=== PATIENT | female | born 1940 | race Caucasian/White ===

== ENCOUNTER → 2016-08-30 | Outpatient (CLI) | payer OTHER ==
[2015-03-14 13:37] VITALS: BP 158/69
--- NOTE | 2016-08-30 15:28 | MRI ---
HISTORY: Altered mental status. Study: MR brain without contrast. Comparison: Head CT dated September 13, 2014. Technique: Multiplanar multi-sequence MRI of the brain was obtained without contrast utilizing a [facility] [place] departmental protocol. Findings: There is an empty sella turcica. The evaluation of the brain parenchyma demonstrates no ab normal signal characteristics to suggest intraparenchymal mass or hemorrhage. There are scattered an d confluent areas of increased T2/FLAIR signal within the periventricular, deep and subcortical whit e matter regions bilaterally which would be most compatible with chronic ischemic microangiopathy in a patient of this age. No extra-axial fluid collections are observed. The ventricular system appea rs symmetric and nondilated. The CP angle is normal in its appearance without brainstem mass or ev idence for acoustic neuroma. The flow voids on both T1 and T2 weighted imaging appear unremarkable. Evaluation of the diffusion weighted imaging does not demonstrate abnormal signal characteristics to suggest acute ischemic change. The extracranial structures are unremarkable. There are degenerat laurel changes of the atlantoaxial articulation. IMPRESSION: 1. There is no acute intracranial abnormality. 2. Nonspecific white matter changes as above. Reported By:
== END ==
LOC: RAD 14:06
PROVIDERS: ATTEND Internal Medicine
DX: R41.82 Altered mental status, unspecified (principal)
CPT/HCPCS: 70551

== ENCOUNTER 2017-11-03 12:42 | Observation (INO) ==
[2017-11-03] MEDS ORDERED: ZOFRAN INJ 4 MG VIAL IVP PRN (15:59)
[2017-11-03 16:22] LABS: BASOPHILS # (AUTO) 0.1 X10^3/uL (0.0-0.1); EOSINOPHILS # (AUTO) 0.2 x10^3/uL (0.0-0.2); EOSINOPHILS % (AUTO) 2.2 % (0.9-2.9); HEMATOCRIT 36.8 % (36.0-47.0); HEMOGLOBIN 12.5 g/dL (12.0-16.0); LYMPHOCYTES # (AUTO) 1.1 X10^3/uL (1.3-2.9); LYMPHOCYTES % (AUTO) 15.6 % (21.0-51.0); MEAN CORPUSCULAR HEMOGLOBIN 28.6 pg (27.0-34.0); MEAN CORPUSCULAR HGB CONC 33.9 g/dL (33.0-35.0); MEAN CORPUSCULAR VOLUME 84.2 fL (80.0-100.0); MEAN PLATELET VOLUME 9.9 fL (7.4-11.0); MONOCYTES # (AUTO) 0.4 x10^3/uL (0.3-0.8); MONOCYTES % (AUTO) 5.5 % (0.0-13.0); NEUTROPHILS # (AUTO) 5.3 x10^3/uL (2.2-4.8); NEUTROPHILS % (AUTO) 75.7 % (42.0-75.0); PLATELET COUNT 146 X10^3/uL (150.0-450.0); RED BLOOD COUNT 4.37 X10^6/uL (3.5-5.4); RED CELL DISTRIBUTION WIDTH 14.6 % (11.6-16.5)
[2017-11-03 16:44] LABS: ALANINE AMINOTRANSFERASE 26 Units/L (12-78); ALBUMIN 3.3 g/dL (3.4-5.0); ALKALINE PHOSPHATASE 66 Units/L (46-116); ASPARTATE AMINO TRANSFERASE 26 Units/L (15-37); BLOOD UREA NITROGEN 25 mg/dL (7-18); CALCIUM 8.9 mg/dL (8.5-10.1); CARBON DIOXIDE 31.6 mmol/L (21-32); CHLORIDE 103 mmol/L (98-107); CKMB % 1.2 % (<4); COR CA(FOR HYPOALB) 9.5 mg/dL (8.5-10.1); COR NA(FOR HYPERGLY) 141 mmol/L (136-145); CREATINE KINASE 260 Units/L (26-192); CREATINE KINASE MB 3.1 ng/mL (0-4.0); CREATININE 1.43 mg/dL (0.55-1.02); SODIUM 139 mmol/L (136-145); TOTAL PROTEIN 6.6 g/dL (6.4-8.2); TROPONIN I < 0.02 ng/mL (0-1.5); eGFR NON BLACK RACES 38 (>60)
[2017-11-03] MEDS: PEPCID 20 MG IV PREMIX* 20 MG/50 ML BAG IV SCH ×2 (17:03→21:11)
[2017-11-03] MEDS: PROTONIX INJ 40 MG VIAL IVP SCH ×2 (17:04→21:11)
[2017-11-03] MEDS: NS 1000 ML 1,000 ML IV SCH (17:04)
[2017-11-03 17:59] VITALS: BMI 42.2
[2017-11-03 18:52] LABS: AMYLASE 40 Units/L (25-115); LIPASE 55 Units/L (73-393)
[2017-11-03 20:14] LABS: CREATINE KINASE 250 Units/L (26-192); CREATINE KINASE MB 2.5 ng/mL (0-4.0); TROPONIN I < 0.02 ng/mL (0-1.5)
[2017-11-03] MEDS ORDERED: HumuLIN R SUBCUT PRN (20:44)
[2017-11-03 23:06] LABS: BILIRUBIN,URINE NEGATIVE (NEGATIVE); BLOOD/HEMOGLOBIN,URINE NEGATIVE (NEGATIVE); GLUCOSE, URINE NEGATIVE (NEGATIVE); KETONES,URINE NEGATIVE (NEGATIVE); LEUKOCYTE ESTERASE ,URINE NEGATIVE (NEGATIVE); NITRITES,URINE NEGATIVE (NEGATIVE); PROTEIN,URINE NEGATIVE (NEGATIVE); UROBILINOGEN,URINE NORMAL (NORMAL)
[2017-11-03 23:08] LABS: APPEARANCE,URINE CLEAR (CLEAR); COLOR,URINE PALE YELLOW (YELLOW)
[2017-11-04] MEDS ORDERED: TYLENOL 325 MG TAB PO PRN
[2017-11-04 01:00] LABS: CKMB % 0.7 % (<4); CREATINE KINASE 229 Units/L (26-192); CREATINE KINASE MB 1.7 ng/mL (0-4.0); TROPONIN I < 0.02 ng/mL (0-1.5)
[2017-11-04 05:25] LABS: BASOPHILS % (AUTO) 0.6 % (0.2-1.0); EOSINOPHILS # (AUTO) 0.1 x10^3/uL (0.0-0.2); EOSINOPHILS % (AUTO) 2.4 % (0.9-2.9); HEMATOCRIT 35.4 % (36.0-47.0); LYMPHOCYTES # (AUTO) 1.6 X10^3/uL (1.3-2.9); LYMPHOCYTES % (AUTO) 29.1 % (21.0-51.0); MEAN CORPUSCULAR HEMOGLOBIN 28.3 pg (27.0-34.0); MEAN CORPUSCULAR HGB CONC 33.8 g/dL (33.0-35.0); MEAN CORPUSCULAR VOLUME 83.7 fL (80.0-100.0); MEAN PLATELET VOLUME 9.7 fL (7.4-11.0); MONOCYTES # (AUTO) 0.4 x10^3/uL (0.3-0.8); MONOCYTES % (AUTO) 7.3 % (0.0-13.0); NEUTROPHILS # (AUTO) 3.4 x10^3/uL (2.2-4.8); NEUTROPHILS % (AUTO) 60.6 % (42.0-75.0); PLATELET COUNT 142 X10^3/uL (150.0-450.0); RED BLOOD COUNT 4.23 X10^6/uL (3.5-5.4); RED CELL DISTRIBUTION WIDTH 14.7 % (11.6-16.5); WHITE BLOOD COUNT 5.5 X10^3/uL (3.6-10.0)
[2017-11-04 05:39] LABS: CALCIUM 8.5 mg/dL (8.5-10.1); CARBON DIOXIDE 32.6 mmol/L (21-32); COR CA(FOR HYPOALB) 9.3 mg/dL (8.5-10.1); CREATININE 1.37 mg/dL (0.55-1.02); TOTAL PROTEIN 6.1 g/dL (6.4-8.2)
[2017-11-04] MEDS ORDERED: K-RIDER 10 MEQ/NS 100 ML 10 MEQ/100 ML BAG IV PRN (06:02)
[2017-11-04] MEDS ORDERED: POTASSIUM CHL 40 MEQ/NS 0.45% 500 ML IV PRN (06:02)
[2017-11-04] MEDS ORDERED: POTASSIUM CHLORIDE LIQ 20 MEQ UDC PO PRN (06:02)
[2017-11-04] MEDS ORDERED: MAGNESIUM SULFATE 1 GRAM/100 mL PREMIX 1 GM/100 ML BAG IV PRN (06:02)
[2017-11-04] MEDS ORDERED: POTASSIUM CHL 60 MEQ/NS 0.45% 500 ML IV PRN (06:02)
[2017-11-04] MEDS ORDERED: K-LYTE EFFERVESCENT PO PRN (06:02)
[2017-11-04] MEDS: NS 1000 ML 1,000 ML IV SCH ×2 (07:52→18:57)
[2017-11-04] MEDS: PROTONIX INJ 40 MG VIAL IVP SCH ×2 (08:32→21:41)
[2017-11-04] MEDS: PEPCID 20 MG IV PREMIX* 20 MG/50 ML BAG IV SCH ×2 (08:32→21:41)
[2017-11-04] MEDS ORDERED: ANTIVERT TAB 25 MG PO PRN (09:43)
[2017-11-04] MEDS ORDERED: PATIENT'S HOME MEDICATION (Fluticasone-Vilanterol [Breo Ellipta] 1 INH) IN SCH (09:45)
[2017-11-04] MEDS ORDERED: PROTONIX TAB 40 MG PO SCH (10:00)
[2017-11-04] MEDS ORDERED: POTASSIUM CHLORIDE PO SCH (10:00)
[2017-11-04] MEDS ORDERED: PATIENT'S HOME MEDICATION (Multiple Vitamins W/ Minerals [Centrum Silver] 1 TAB) PO SCH (10:00)
[2017-11-04] MEDS ORDERED: ALLEGRA ONE (11:55)
[2017-11-04] MEDS: CARDURA PO SCH (11:58)
[2017-11-04] MEDS: CELEBREX PO SCH (11:59)
[2017-11-04] MEDS: SYNTHROID 50 mcg TAB PO SCH (11:59)
[2017-11-04] MEDS: COLACE CAP 100 MG PO SCH ×3 (11:59→21:56)
[2017-11-04] MEDS: COREG TAB 25 MG PO SCH ×2 (12:01→21:40)
[2017-11-04] MEDS: TAB-A-VITE PO SCH (12:02)
[2017-11-04] MEDS: ALLEGRA PO SCH (12:02)
[2017-11-04] MEDS: ULTRAM PO SCH ×2 (12:05→21:41)
[2017-11-04] MEDS ORDERED: PROVENTIL NEB TX 0.083% 2.5MG/ 3ML NEB SCH (13:00)
[2017-11-04 13:52] LABS: STOOL FOR WBC POSITIVE (NEGATIVE)
[2017-11-04] MEDS: MICRO K EXTEN CAP 10 MEQ PO SCH (13:59)
--- NOTE | 2017-11-04 14:28 | CT ---
HISTORY: Upper abdominal pain, nausea and vomiting Study: CT abdomen and pelvis without contrast Comparison: 02/23/2015 Technique: Multiple axial images of the abdomen and pelvis were obtained from the lung bases to the pubic symphy sis without the administration of IV contrast. Findings: The visualized portions of the lung bases are unremarkable. Imaging of the abdomen and pelvis demonstrates a small hiatal hernia. There is also a midline ventral abdominal wall hernia containing fat within the upper abdomen. The liver is unremarkable. The patien t is status post cholecystectomy. There is diffuse fatty atrophy of the pancreas. Again visualized is a peripherally calcified lesion within the spleen, unchanged when compared to prior exam. The bilate ral adrenal glands are unremarkable. There has been interval enlargement of a slightly hypodense lesi on within the superior pole of the left kidney. This lesion measures 2.5 cm in diameter and does not have Hounsfield units consistent with a simple cyst. Although this could represent a complicated cyst , further evaluation with MRI of the abdomen with and without contrast is recommended. Multi focal at rophy and scarring is noted within the left kidney. There is a small cortical calcification or nonobs tructive caliceal stone within the superior pole the left kidney. No significant mesenteric lymphaden opathy or stranding can be observed. No free fluid or free air is seen within the abdomen. No bowel wall thickening or bowel dilatation is present. There is scattered mild diverticulosis of the colon without evidence of acute diverticulitis. The appendix is normal in appearance and without inflammat ory change. The urinary bladder is mostly decompressed. The bony structures are grossly intact. IMPRESSION: 1. No acute intra-abdominal abnormality. 2. Indeterminate left renal lesion as described above for which correlation with MRI of the abdomen w ith and without contrast is recommended in a nonemergent setting. 3. Small hiatal hernia. 4. Midline ventral abdominal wall hernia containing fat and other incidental findings as above. Reported By:
[2017-11-04] MEDS: INSULIN ASPART U 1 UNIT SUB-Q SCH (16:47)
[2017-11-04] MEDS ORDERED: SNACK - Diabetic Appropriate PO SCH (20:00)
[2017-11-04] MEDS ORDERED: PULMICORT NEB TX 0.5 MG NEB SCH (21:00)
[2017-11-04] MEDS ORDERED: PATIENT'S HOME MEDICATION (Simvastatin 1 TAB) PO SCH (21:00)
[2017-11-04] MEDS ORDERED: ZOCOR TAB 40 MG PO SCH (21:00)
[2017-11-04] MEDS ORDERED: PATIENT'S HOME MEDICATION (Levocetirizine Dihydrochloride [Xyzal] 1 TAB) PO SCH (21:00)
[2017-11-04] MEDS ORDERED: ZyrTEC TAB 10 MG PO SCH (21:00)
[2017-11-05 05:05] LABS: BASOPHILS % (AUTO) 0.9 % (0.2-1.0); EOSINOPHILS # (AUTO) 0.2 x10^3/uL (0.0-0.2); EOSINOPHILS % (AUTO) 3.6 % (0.9-2.9); HEMATOCRIT 35.5 % (36.0-47.0); HEMOGLOBIN 11.9 g/dL (12.0-16.0); LYMPHOCYTES # (AUTO) 1.4 X10^3/uL (1.3-2.9); LYMPHOCYTES % (AUTO) 26.2 % (21.0-51.0); MEAN CORPUSCULAR HEMOGLOBIN 28.2 pg (27.0-34.0); MEAN CORPUSCULAR HGB CONC 33.4 g/dL (33.0-35.0); MEAN CORPUSCULAR VOLUME 84.5 fL (80.0-100.0); MEAN PLATELET VOLUME 9.6 fL (7.4-11.0); MONOCYTES # (AUTO) 0.4 x10^3/uL (0.3-0.8); MONOCYTES % (AUTO) 7.7 % (0.0-13.0); NEUTROPHILS # (AUTO) 3.3 x10^3/uL (2.2-4.8); NEUTROPHILS % (AUTO) 61.6 % (42.0-75.0); PLATELET COUNT 148 X10^3/uL (150.0-450.0); RED CELL DISTRIBUTION WIDTH 14.8 % (11.6-16.5); WHITE BLOOD COUNT 5.4 X10^3/uL (3.6-10.0)
[2017-11-05 05:39] LABS: CALCIUM 8.6 mg/dL (8.5-10.1); CARBON DIOXIDE 30.8 mmol/L (21-32); COR CA(FOR HYPOALB) 9.4 mg/dL (8.5-10.1); CREATININE 1.16 mg/dL (0.55-1.02); TOTAL PROTEIN 6.1 g/dL (6.4-8.2)
[2017-11-05] MEDS ORDERED: LEVEMIR SC SCH (07:00)
[2017-11-05] MEDS: NS 1000 ML 1,000 ML IV SCH ×2 (07:32→09:15)
[2017-11-05] MEDS: SYNTHROID 50 mcg TAB PO SCH (07:41)
[2017-11-05] MEDS: INSULIN ASPART U 1 UNIT SUB-Q SCH (07:41)
[2017-11-05] MEDS ORDERED: ALLEGRA ONE (09:01)
[2017-11-05] MEDS: PEPCID 20 MG IV PREMIX* 20 MG/50 ML BAG IV SCH (09:12)
[2017-11-05] MEDS: PROTONIX INJ 40 MG VIAL IVP SCH (09:12)
[2017-11-05] MEDS: CARDURA PO SCH (09:13)
[2017-11-05] MEDS: CELEBREX PO SCH (09:13)
[2017-11-05] MEDS: ULTRAM PO SCH (09:13)
[2017-11-05] MEDS: TAB-A-VITE PO SCH (09:13)
[2017-11-05] MEDS: ALLEGRA PO SCH (09:13)
[2017-11-05] MEDS: MICRO K EXTEN CAP 10 MEQ PO SCH (09:13)
[2017-11-05] MEDS: COLACE CAP 100 MG PO SCH (09:14)
[2017-11-05] MEDS: COREG TAB 25 MG PO SCH (09:14)
[2017-11-05 09:26] VITALS: BP 187/77
--- NOTE | 2017-11-05 11:47 | DR.UPDATE ---
H&P Update History and Physical Update: WAS SEEN IN THE OFFICE TODAY. A H&P WAS COMPLETED PRIOR TO ADMISSION. PATIENT HAS BEEN SEEN AND EXAMINED WITH NO CHANGES NOTED TO H&P. Changes noted: NO Yes with the following:
[2017-11-05] MEDS ORDERED: HumaLOG SC SCH (17:00)
--- NOTE | 2017-12-04 01:35 | DR.CARTERD ---
- Discharge Summary for: Discharge Summary for Date of:: 11/05/17 - Admission Date Date of Admission: 11/03/17 - Admission Diagnoses Admission Diagnosis: 1. Abdominal pain 2. Nausea and vomiting 3. Dehydration - Discharge Date Discharge Date: 11/05/17 - Discharge Diagnoses Discharge Diagnosis: 1. Abdominal pain 2. Nausea and vomiting 3. Dehydration - Hospital Course Hospital Course: Day one, patient presented to the hospital as a direct admission after being seen in the office with reports of malaise, nausea and vomiting. Patient stated symptoms started three days prior and she was seen in the emergency room then and told she had a virus. Patient stated she had continued to feel worse. Reported symptoms included dizziness and head pressure. Patient noted with diffuse abdominal tenderness on palpation. On auscultation of abdominal quadrants patient noted with hypoactive bowel sounds throughout. Patient rated pain as a 7/10. Abnormal Labs: Plt Count 146, BUN 25, Creatinine 1.43, GFR af 46, GFR non 38, Glucose 200, Creatine Kinase 260, 250, Albumin 3.3, A/G Ratio 1.0, Lipase 55. EKG: Sinus Rhythm, rate=66. Patient admitted to the hospital for further evaluation and treatment. We obtained serial cardiac enzymes and EKGs. Day two, patient continued with abdominal pain and nausea and vomiting. Renal function slightly improved with IV hydration. A CT of abd/pelvis was obtained and was negative for acute abnormality. We continued IV fluids and IV antiemetics along with pain medication. Day three, patient reported she was feeling better. Patient denied nausea or vomiting. On palpation of abdomen, patient denied abdominal pain. Cardiac enzymes wnl, as well as EKG's. Vital signs stable. Labs wnl. We planned for discharge. Instructions for medications and follow up were discussed with patient and family, both voiced understanding. Patient discharged home in stable condition with family. - Discharge Medications Discharge Medications: Home Medication List celecoxib [Celebrex] 200 mg PO DAILY 11/03/17 [History] docusate sodium [Colace] 200 mg PO HS 11/03/17 [History] doxazosin [Cardura] 1 mg PO DAILY 11/03/17 [History] fexofenadine [Chapis Allergy] 180 mg PO DAILY 11/03/17 [History] fluticasone-vilanterol [Breo Ellipta] 1 inh INHALATION DAILY 11/03/17 [History] insulin aspart U-100 [Novolog U-100 Insulin aspart] 1 unit SUB-Q BIDWM 11/03/17 [History] insulin detemir U-100 [Levemir U-100 Insulin] 24 unit SUB-Q DAILYWB 11/03/17 [ History] levothyroxine [Synthroid] 50 mcg PO DAILYAC 11/03/17 [History] losartan-hydrochlorothiazide 1 tab PO DAILY 11/03/17 [History] meclizine 25 mg PO TID PRN MDD 2 11/03/17 [History] tramadol 50 mg PO BID 11/03/17 [History] ciprofloxacin HCl [Cipro] 500 mg PO BID #20 tab 11/05/17 [Rx] ondansetron [Zofran ODT] 4 mg PO TID PRN #30 tab 11/05/17 [Rx] Prescriptions: ciprofloxacin HCl [Cipro] Milan Ackerman ondansetron [Zofran ODT] Milan Ackerman - Discharge Disposition Discharge Disposition: Patient is to follow up in our office in one week.
--- NOTE | 2017-12-04 21:48 | PCM.PROG ---
Progress Note - Progress Note for Day of Date of Exam: 11/04/17 - Subjective Subjective: WAS ADMITTED FOR ABDOMINAL PAIN, NAUSEA, AND VOMITING. TODAY, SHE IS ALERT AND ORIENTED, LYING IN BED ON MORNING ROUNDS. SHE CONTINUES WITH COMPLAINTS OF ABDOMINAL PAIN, DIARRHEA, AND NAUSEA, BUT REPORTS SLIGHT IMPROVEMENT SINCE YESTERDAY. EXAM REVEALS MILD, DIFFUSE TENDERNESS OF PALPATION WITH INCREASED BOWEL SOUNDS NOTED IN ALL QUADRANTS. HER VITALS TODAY ARE 98.5-75 -20-96%-152/68. LABS WERE OBTAINED. ABNORMAL LAB VALUES INCLUDE THE FOLLOWING: HCT 35.4, PLT COUNT 142, POTASSIUM 3.2, CARBON DIOXIDE 32.6, BUN 21, CREATININE 1.37, GLUCOSE 151, TOTAL PROTEIN 6.1, ALBUMIN 3.0, LIPASE 49. A URINALYSIS OBTAINED ON ADMISSION IS UNREMARKABLE. AN ABDOMEN/PELVIS CT WAS OBTAINED AND REVEALED: No acute intra-abdominal abnormality. Indeterminate left renal lesion as described above for which correlation with MRI of the abdomen with and without contrast is recommended in a nonemergent setting. Small hiatal hernia. Midline ventral abdominal wall hernia containing fat and other incidental findings as above. TODAY, WE WILL OBTAIN STOOL STUDIES. OTHERWISE, WE WILL FOLLOW UP WITH AM LABS AND CONTINUE TO MONITOR PATIENT. - Past Medical Family Social History Past Med/Fam/Surg Hx: No changes since H&P Allergies: Allergies labetalol Allergy (Verified 11/03/17 18:04) Sulfa (Sulfonamide Antibiotics) [SULFA] Allergy (Verified 11/03/17 18:04) - Review of Systems ROS: No change since H&P - Vital Signs and I&O's Vital Signs: Temperature 97.9 F Pulse Rate [Right Brachial] 71 Respiratory Rate 22 Blood Pressure [Right Arm] 187/77 Blood Pressure [Left Calf] 128/53 Blood Pressure [Left Arm] 178/69 Blood Pressure 191/80 O2 Sat by Pulse Oximetry 94 - Physical Exam Oriented: Normal Eyes: Normal Ear: Normal Nose: Normal Throat: Normal Respiratory: Normal Cardiovascular: Normal : Normal Auscultation: Bowel Sounds: Increased Palpation: Normal Tenderness: Diffuse, Mild. negative: Rebound, Guarding, Rigidity Skin: Normal Musculoskeletal: Normal Psychiatric: Normal Mood Description: Calm Affect: Normal Speech Pattern: Clear, Appropriate - Laboratory and Diagnostics Result Diagrams: 11/05/17 04:35 11/05/17 04:35 Labs: 11/04/17 12:52 Stool Stool Culture - Final 11/04/17 12:52 Stool - Final Laboratory WBC 5.4 X10^3/uL (3.6-10.0) 11/05/17 04:35 RBC 4.20 X10^6/uL (3.5-5.4) 11/05/17 04:35 Hgb 11.9 g/dL (12.0-16.0) L 11/05/17 04:35 Hct 35.5 % (36.0-47.0) L 11/05/17 04:35 MCV 84.5 fL (80.0-100.0) 11/05/17 04:35 MCH 28.2 pg (27.0-34.0) 11/05/17 04:35 MCHC 33.4 g/dL (33.0-35.0) 11/05/17 04:35 RDW 14.8 % (11.6-16.5) 11/05/17 04:35 Plt Count 148 X10^3/uL (150.0-450.0) L 11/05/17 04:35 MPV 9.6 fL (7.4-11.0) 11/05/17 04:35 Neut % (Auto) 61.6 % (42.0-75.0) 11/05/17 04:35 Lymph % (Auto) 26.2 % (21.0-51.0) 11/05/17 04:35 Petroleum % (Auto) 7.7 % (0.0-13.0) 11/05/17 04:35 Eos % (Auto) 3.6 % (0.9-2.9) H 11/05/17 04:35 Baso % (Auto) 0.9 % (0.2-1.0) 11/05/17 04:35 Neut # (Auto) 3.3 x10^3/uL (2.2-4.8) 11/05/17 04:35 Lymph # (Auto) 1.4 X10^3/uL (1.3-2.9) 11/05/17 04:35 Petroleum # (Auto) 0.4 x10^3/uL (0.3-0.8) 11/05/17 04:35 Eos # (Auto) 0.2 x10^3/uL (0.0-0.2) 11/05/17 04:35 Baso # (Auto) 0.0 X10^3/uL (0.0-0.1) 11/05/17 04:35 Absolute Nucleated RBC 0.1 /100WBC 11/05/17 04:35 Sodium 144 mmol/L (136-145) 11/05/17 04:35 Corrected Sodium 146 mmol/L (136-145) H 11/05/17 04:35 Potassium 4.2 mmol/L (3.5-5.1) 11/05/17 04:35 Chloride 108 mmol/L (98-107) H 11/05/17 04:35 Carbon Dioxide 30.8 mmol/L (21-32) 11/05/17 04:35 BUN 15 mg/dL (7-18) 11/05/17 04:35 Creatinine 1.16 mg/dL (0.55-1.02) H 11/05/17 04:35 Est GFR (MDRD) Af Amer 58 (>60) L 11/05/17 04:35 Est GFR (MDRD) Non-Af 48 (>60) L 11/05/17 04:35 Glucose 178 mg/dL (65-99) H 11/05/17 04:35 POC Glucose (mg/dL) 124 mg/dL (65-99) H 11/05/17 04:34 Calcium 8.6 mg/dL (8.5-10.1) 11/05/17 04:35 Corrected Calcium 9.4 mg/dL (8.5-10.1) 11/05/17 04:35 Magnesium 1.7 mg/dL (1.7-2.9) 11/04/17 04:48 Total Bilirubin 0.40 mg/dL (0.2-1.0) 11/05/17 04:35 AST 22 Units/L (15-37) 11/05/17 04:35 ALT 24 Units/L (12-78) 11/05/17 04:35 Alkaline Phosphatase 55 Units/L (46-116) 11/05/17 04:35 Creatine Kinase 229 Units/L (26-192) H 11/04/17 00:10 CK-MB (CK-2) 1.7 ng/mL (0-4.0) 11/04/17 00:10 CK/CKMB % Calc 0.7 % (<4) 11/04/17 00:10 Troponin I < 0.02 ng/mL (0-1.5) 11/04/17 00:10 Total Protein 6.1 g/dL (6.4-8.2) L 11/05/17 04:35 Albumin 3.0 g/dL (3.4-5.0) L 11/05/17 04:35 Globulin 3.1 g/dL (2.5-4.5) 11/05/17 04:35 Albumin/Globulin Ratio 1.0 Ratio (1.1-2.1) L 11/05/17 04:35 Amylase 34 Units/L (25-115) 11/04/17 04:48 Lipase 49 Units/L (73-393) L 11/04/17 04:48 Specimen Type Random urine 11/03/17 22:35 Urine Color Pale yellow (YELLOW) 11/03/17 22:35 Urine Appearance Clear (CLEAR) 11/03/17 22:35 Urine pH 6.0 (5.0 - 8.0) 11/03/17 22:35 Ur Specific Ewen 1.010 (1.000-1.030) 11/03/17 22:35 Urine Protein Negative (NEGATIVE) 11/03/17 22:35 Urine Glucose (UA) Negative (NEGATIVE) 11/03/17 22:35 Urine Ketones Negative (NEGATIVE) 11/03/17 22:35 Urine Occult Blood Negative (NEGATIVE) 11/03/17 22:35 Urine Nitrite Negative (NEGATIVE) 11/03/17 22:35 Urine Bilirubin Negative (NEGATIVE) 11/03/17 22:35 Urine Urobilinogen Normal (NORMAL) 11/03/17 22:35 Ur Leukocyte Esterase Negative (NEGATIVE) 11/03/17 22:35 Stool Description 100g semi-formed 11/04/17 12:52 Stool Neutral Fats Normal (Normal) 11/04/17 12:52 Stool Split Fat Normal (Normal) 11/04/17 12:52 Stl Occult Blood (IFOB) Negative (NEGATIVE) 11/04/17 12:52 Stool for White Cells Positive (NEGATIVE) A 11/04/17 12:52 Stl C. diff Tox B Gene Negative (NEGATIVE) 11/04/17 12:52 Stl C. diff [id number] Negative (NEGATIVE) 11/04/17 12:52 - Plan (1) Abdominal pain Status: Acute Qualifiers: Abdominal location: generalized Qualified Code(s): R10.84 - Generalized abdominal pain Plan: OBTAIN STOOL STUDIES, CONTINUE TO MONITOR (2) Nausea and vomiting Status: Acute Qualifiers: Vomiting type: unspecified Vomiting Intractability: intractable Qualified Code(s): R11.2 - Nausea with vomiting, unspecified
== END 2017-11-05 11:15 | disposition home or self-care (01) ==
LOC: MED/SURG
PROVIDERS: ADMIT Internal Medicine; ATTEND Internal Medicine
DX: R94.31 Abnormal electrocardiogram [ECG] [EKG]; R10.84 Generalized abdominal pain; R07.89 Other chest pain; K43.9 Ventral hernia without obstruction or gangrene; K44.9 Diaphragmatic hernia without obstruction or gangrene; E11.65 Type 2 diabetes mellitus with hyperglycemia; R11.2 Nausea with vomiting, unspecified
CPT/HCPCS: 36415; 74176; 80053; 81003; 82150; 82270; 82550; 82553; 82705; 83630; 83690; 83735; 84132; 84484; 85025; 87045; 87427; 87449; 87493; 87899; 93005; A4216; A4222; C9113; S0028; G0378; J1815; J3480; J3490; J7030

== ENCOUNTER 2018-09-22 04:53 | Observation (INO) ==
[2018-09-22] MEDS ORDERED: ZOFRAN INJ 4 MG VIAL ONE (05:09)
[2018-09-22] MEDS ORDERED: NS 1000 ML 1,000 ML ONE (05:09)
[2018-09-22] MEDS ORDERED: ZOFRAN INJ 4 MG VIAL IVP ONE (05:23)
[2018-09-22 05:27] VITALS: BMI 40.2
[2018-09-22] MEDS: NS 1000 ML 1,000 ML IV SCH ×3 (05:28→23:20)
[2018-09-22 05:37] LABS: BASOPHILS # (AUTO) 0.1 X10^3/uL (0.0-0.1); BASOPHILS % (AUTO) 0.6 % (0.2-1.0); EOSINOPHILS # (AUTO) 0.1 x10^3/uL (0.0-0.2); EOSINOPHILS % (AUTO) 1.3 % (0.9-2.9); HEMATOCRIT 41.1 % (36.0-47.0); HEMOGLOBIN 13.7 g/dL (12.0-16.0); LYMPHOCYTES # (AUTO) 1.1 X10^3/uL (1.3-2.9); LYMPHOCYTES % (AUTO) 14.1 % (21.0-51.0); MEAN CORPUSCULAR HEMOGLOBIN 29.3 pg (27.0-34.0); MEAN CORPUSCULAR HGB CONC 33.4 g/dL (33.0-35.0); MEAN CORPUSCULAR VOLUME 87.7 fL (80.0-100.0); MEAN PLATELET VOLUME 9.8 fL (7.4-11.0); MONOCYTES # (AUTO) 0.6 x10^3/uL (0.3-0.8); MONOCYTES % (AUTO) 7.1 % (0.0-13.0); NEUTROPHILS # (AUTO) 6.1 x10^3/uL (2.2-4.8); NEUTROPHILS % (AUTO) 76.9 % (42.0-75.0); PLATELET COUNT 176 X10^3/uL (150.0-450.0); RED BLOOD COUNT 4.69 X10^6/uL (3.5-5.4); RED CELL DISTRIBUTION WIDTH 13.4 % (11.6-16.5)
--- NOTE | 2018-09-22 05:41 | DR.NAUSEAF ---
HPI Time Seen Time Seen by Provider: 09/22/18 05:29 Primary Care Physician Primary Care Physician: césar Zarate Chief Complaint Doctors Comments: A 77 y/o female presenting with nausea and vomiting. She has vomited x 3 since 0300 hrs. this morning. She denies fever, abdominal pain or diarrhea. She denies recent travel, consuming poorly prepared food items. Chief Complaint:: pt states" I woke up at 3 am vomiting I can't keep anything down I feel weak and my blood pressure is up" Source History Provided: Patient Mode of Arrival Mode of Arrival: Wheelchair Timing Onset of Chief Complaint: 09/22/18 Severity Number of episodes of vomiting over last 24 hours: 3 Context Onset: Spontaneous Recent: None : No Associated Signs and Symptoms Abdominal Pain Quality: denies Aching, Burning, Cramping, Sharp and Stabbing PMH PMH Past Medical History: Yes Past Medical History: COPD, Diabetes, Dyslipidemia, Hypertension, Hypothyroidism and Renal Disease Past Surgical History: Yes Surgical History: CABG/Valve Surgery, Cholecystectomy, Joint Replacement and Ortho Surgery Family History History of Family Medical Conditions: Yes Family Medical History: Diabetes Mellitus, Cancer, Coronary Artery Disease and Hypertension Social History Does any household member use tobacco: No Alcohol Use: None Do you use any recreational Drugs:: No Lives With: Family Lives Where: Home infectious screening In the last 2 months have you had wt loss of >10#?: NO Have you had fever, night sweats or hemotysis?: No Have you traveled outside the country in the last 6 months?: No Isolation: Standard ROS Review of Systems Constitutional: No Symptoms Reported Eyes: No Symptoms Reported ENTM: No Symptoms Reported Respiratoy: No Symptoms Reported Cardiovascular: No Symptoms Reported Gastrointestinal/Abdominal: Nausea and Vomiting; negative No Symptoms Reported, See HPI, Abdominal Pain, Constipation, Diarrhea and Food Intolerance Genitourinary: No Symptoms Reported Neurological: No Symptoms Reported Musculoskeletal: No Symptoms Reported Integumentary: No Symptoms Reported Hematologic/Lymphatic: No Symptoms Reported Endocrine: No Symptoms Reported Psychiatric: No Symptoms Reported PE Vital Signs Vitals: Temperature 98.2 F Pulse Rate 74 Respiratory Rate 20 Blood Pressure [Right Arm] 169/74 Blood Pressure [Left Calf] 128/53 Blood Pressure [Left Arm] 178/69 Blood Pressure 196/87 O2 Sat by Pulse Oximetry 96 General Limitations: No Limitations General Appearance: Alert and In No Apparent Distress Head Head Exam: Normal Inspection, Atraumatic and Normocephalic Eyes Eye exam: Normal Appearance and EOMI ENT ENT Exam: Normal Oropharynx and Mucous Membranes Moist Neck Neck Exam: Normal Inspection, Full ROM and Trachea Midline Chest Chest Inspection: Normal Inspection and Symmetric Chest Wall Rise Respiratory Respiratory Exam: Normal Lung Sounds Bilat Cardiovascular Cardiovascular Exam: Regular Rate, Normal Rhythm, +S1 and +S2 Abdominal Exam Abdominal Exam: Normal Inspection, Normal Bowel Sounds and Soft; negative Distention, Tenderness, Guarding, Rebound, Rigidity, Dimnished Bowel Sounds, Hyperactive Bowel Sounds, Hypoactive Bowel Sounds, Organomegaly, Trauma, Incision, Ascites, Mass, Bruit, Pulsatile Mass and Hernia Rectal Rectal Exam: Deferred External Exam: Female: Deferred Extremities Extremities Exam: Normal Inspection Back Back Exam: Normal Inspection Neurologic Neurological Exam: Alert and Oriented X3 Psychiatric Psychiatric Exam: Normal Affect and Normal Mood Skin Skin Exam: Dry and Normal Color COURSE Reevaluation 1st: Improved Education/Counseling Education/Counseling: Patient, Family, Education and Counseling Educated On: Treatment, Diagnosis, Prognosis and Needs for Follow Up ROR Labs Reviewed Result Diagrams: 09/22/18 05:20 09/22/18 05:20 Laboratory: WBC 8.0 X10^3/uL (3.6-10.0) 09/22/18 05:20 RBC 4.69 X10^6/uL (3.5-5.4) 09/22/18 05:20 Hgb 13.7 g/dL (12.0-16.0) 09/22/18 05:20 Hct 41.1 % (36.0-47.0) 09/22/18 05:20 MCV 87.7 fL (80.0-100.0) 09/22/18 05:20 MCH 29.3 pg (27.0-34.0) 09/22/18 05:20 MCHC 33.4 g/dL (33.0-35.0) 09/22/18 05:20 RDW 13.4 % (11.6-16.5) 09/22/18 05:20 Plt Count 176 X10^3/uL (150.0-450.0) 09/22/18 05:20 MPV 9.8 fL (7.4-11.0) 09/22/18 05:20 Neut % (Auto) 76.9 % (42.0-75.0) H 09/22/18 05:20 Lymph % (Auto) 14.1 % (21.0-51.0) L 09/22/18 05:20 [place] % (Auto) 7.1 % (0.0-13.0) 09/22/18 05:20 Eos % (Auto) 1.3 % (0.9-2.9) 09/22/18 05:20 Baso % (Auto) 0.6 % (0.2-1.0) 09/22/18 05:20 Neut # (Auto) 6.1 x10^3/uL (2.2-4.8) H 09/22/18 05:20 Lymph # (Auto) 1.1 X10^3/uL (1.3-2.9) L 09/22/18 05:20 [place] # (Auto) 0.6 x10^3/uL (0.3-0.8) 09/22/18 05:20 Eos # (Auto) 0.1 x10^3/uL (0.0-0.2) 09/22/18 05:20 Baso # (Auto) 0.1 X10^3/uL (0.0-0.1) 09/22/18 05:20 Absolute Nucleated RBC 0.0 /100WBC 09/22/18 05:20 Sodium 143 mmol/L (136-145) 09/22/18 05:20 Corrected Sodium TNP 09/22/18 05:20 Potassium 3.6 mmol/L (3.5-5.1) 09/22/18 05:20 Chloride 103 mmol/L (98-107) 09/22/18 05:20 Carbon Dioxide 30.2 mmol/L (21-32) 09/22/18 05:20 BUN 30 mg/dL (7-18) H 09/22/18 05:20 Creatinine 1.44 mg/dL (0.55-1.02) H 09/22/18 05:20 Est GFR (MDRD) Af Amer 45 (>60) L 09/22/18 05:20 Est GFR (MDRD) Non-Af 38 (>60) L 09/22/18 05:20 Glucose 110 mg/dL (65-99) H 09/22/18 05:20 Calcium 9.5 mg/dL (8.5-10.1) 09/22/18 05:20 Corrected Calcium TNP 09/22/18 05:20 Total Bilirubin 0.30 mg/dL (0.2-1.0) 09/22/18 05:20 AST 22 Units/L (15-37) 09/22/18 05:20 ALT 26 Units/L (12-78) 09/22/18 05:20 Alkaline Phosphatase 74 Units/L (46-116) 09/22/18 05:20 Total Protein 7.5 g/dL (6.4-8.2) 09/22/18 05:20 Albumin 3.7 g/dL (3.4-5.0) 09/22/18 05:20 Globulin 3.8 g/dL (2.5-4.5) 09/22/18 05:20 Albumin/Globulin Ratio 1.0 Ratio (1.1-2.1) L 09/22/18 05:20 Amylase 46 Units/L (25-115) 09/22/18 05:20 Lipase 45 Units/L (73-393) L 09/22/18 05:20 Opioid Opioid Risk Tool Total: 0 Total Score Risk Category: Low Risk Copyright: Larry FARMER predicting aberrant behaviors Diagnosis Discharge Problem: Nausea & vomiting Qualifiers: Vomiting type: unspecified Vomiting Intractability: non-intractable Qualified Code(s): R11.2 - Nausea with vomiting, unspecified HTN (hypertension) Qualifiers: Hypertension type: essential hypertension Qualified Code(s): I10 - Essential (primary) hypertension Instructions Instructions: Nausea and Vomiting, Adult, [id number] Forms: Excuse From Work
[2018-09-22 05:47] LABS: ALANINE AMINOTRANSFERASE 26 Units/L (12-78); ALBUMIN 3.7 g/dL (3.4-5.0); ALKALINE PHOSPHATASE 74 Units/L (46-116); AMYLASE 46 Units/L (25-115); ASPARTATE AMINO TRANSFERASE 22 Units/L (15-37); BLOOD UREA NITROGEN 30 mg/dL (7-18); CALCIUM 9.5 mg/dL (8.5-10.1); CARBON DIOXIDE 30.2 mmol/L (21-32); CHLORIDE 103 mmol/L (98-107); CREATININE 1.44 mg/dL (0.55-1.02); LIPASE 45 Units/L (73-393); SODIUM 143 mmol/L (136-145); TOTAL PROTEIN 7.5 g/dL (6.4-8.2); eGFR NON BLACK RACES 38 (>60)
[2018-09-22] MEDS ORDERED: APRESOLINE INJ 20 MG VIAL IVP ONE (05:58)
[2018-09-22] MEDS ORDERED: APRESOLINE INJ 20 MG VIAL ONE (06:01)
[2018-09-22] MEDS: NITROSTAT SL PRN ×2 (06:34→09:56)
[2018-09-22 07:16] LABS: CKMB % 2.3 % (<4); CREATINE KINASE 210 Units/L (26-192); TROPONIN I < 0.02 ng/mL (0-1.5)
[2018-09-22 07:18] LABS: CREATINE KINASE MB 4.9 ng/mL (0-4.0)
--- NOTE | 2018-09-22 08:07 | RAD ---
HISTORY: Chest pain, hypotension Study: Chest AP portable Comparison: None available Findings: The patient is status post median sternotomy and CABG. The heart is enlarged. No congestive heart failure is noted. The lung bull are clear. No pleural effusions are identified. The bony thorax is unremarkable. IMPRESSION: Moderate cardiomegaly without congestive heart failure Lungs clear Reported By:
[2018-09-22] MEDS ORDERED: FLUTICASONE FUROATE VILANTEROL IN SCH (09:00)
[2018-09-22] MEDS ORDERED: PROAMATINE PO SCH (09:00)
[2018-09-22] MEDS ORDERED: CELEBREX PO SCH (09:00)
[2018-09-22] MEDS ORDERED: COLACE CAP 100 MG PO SCH (09:00)
[2018-09-22] MEDS: ULTRAM PO SCH ×2 (09:42→21:11)
[2018-09-22] MEDS: SYNTHROID 88 mcg TAB PO SCH (09:43)
[2018-09-22] MEDS: TAB-A-VITE PO SCH (09:43)
[2018-09-22] MEDS: ASPIRIN EC 81 MG PO SCH (09:43)
[2018-09-22] MEDS: ANTIVERT TAB 25 MG PO SCH ×2 (09:43→21:11)
[2018-09-22] MEDS: PROTONIX TAB 40 MG PO SCH ×2 (09:44→21:12)
[2018-09-22] MEDS: ZyrTEC TAB 10 MG PO SCH ×2 (09:47→21:12)
[2018-09-22] MEDS ORDERED: HumuLIN R SUBCUT PRN (10:00)
[2018-09-22] MEDS ORDERED: K-RIDER 10 MEQ/NS 100 ML 10 MEQ/100 ML BAG IV PRN (11:10)
[2018-09-22] MEDS ORDERED: POTASSIUM CHL 40 MEQ/NS 0.45% 500 ML IV PRN (11:10)
[2018-09-22] MEDS ORDERED: POTASSIUM CHL 60 MEQ/NS 0.45% 500 ML IV PRN (11:10)
[2018-09-22] MEDS ORDERED: K-DUR TAB 20 MEQ PO PRN (11:10)
[2018-09-22] MEDS ORDERED: POTASSIUM CHLORIDE LIQ 20 MEQ UDC PO PRN (11:10)
[2018-09-22] MEDS ORDERED: MICRO K EXTEN CAP 10 MEQ PO PRN (11:10)
[2018-09-22] MEDS ORDERED: KLOR-CON PO PRN (11:10)
[2018-09-22] MEDS: HumuLIN R SUBCUT PRN ×3 (11:44→21:13)
[2018-09-22 11:54] LABS: CKMB % 2.7 % (<4); TROPONIN I 0.08 ng/mL (0-1.5)
[2018-09-22 11:56] LABS: CREATINE KINASE MB 6.3 ng/mL (0-4.0)
[2018-09-22] MEDS ORDERED: XOPENEX 1.25 MG/3 ML NEBULE NEB SCH (14:00)
--- NOTE | 2018-09-22 15:57 | DR.H&P ---
H&P - History & Physical for Day of: H&P Date: 09/22/18 - Chief Complaint Chief Complaint: CHEST PAIN, NAUSEA/VOMITING - History of Present Illness History of Present Illness: IS A 77 YEAR OLD PATIENT OF OURS. SHE PRESENTED TO THE ER WITH COMPLAINTS OF NAUSEA AND VOMITING FOR THE PAST TWO HOURS. SHE ALSO REPORTS INCREASED BLOOD PRESSURE. SHE DENIED FEVER, ABDOMINAL PAIN, OR DIARRHEA. SHE DOES REPORT MILD CHEST PAIN. MEDICAL HISTORY INCLUDES CAD, ANGINA, HTN, AND COPD. ON ARRIVAL, VITALS WERE 98.2-74-20-96%-196/87. LABS WERE OBTAINED. ABNORMAL LAB VALUES INCLUDE THE FOLLOWING: BUN 30, CREATININE 1.44, GLUCOSE 110, LIPASE 45, CREATINE KINASE 210, CK-MB 4.9. TROPONIN WAS LESS THAN 0.02. AN EKG WAS OBTAINED AND REVEALED SINUS RHYTHM WITH HR 90. A CHEST XRAY WAS OBTAINED AND REVEALED: MODERATE CARDIOMEGALY WITHOUT CONGESTIVE HEART FAILURE. LUNGS CLEAR. SHE WAS GIVEN NITROGLYCERIN SL X 2 DOSES AND APRESOLINE 20MG IV X 1 DOSE IN THE ER. HER BLOOD PRESSURE WAS NOTED TO DROP TO 71/35. FLUIDS WERE INCREASED AND SHE WAS PLACED IN TRENDELENBURG POSITION. HER BLOOD PRESSURE WAS NOTED TO INCREASE TO 109/49. SHE WAS AMITTED FOR FURTHER EVALUATION AND TREATMENT OF CHEST PAIN RULE OUT ACUTE [place] AND NAUSEA/VOMITING. SHE WAS STARTED ON NORMAL SALINE AT 125ML/HR, POTASSIUM PROTOCOL, NITRO PRN, SUPPLEMENTAL OXYGEN, AND WE PLAN TO REVIEW HER HOME MEDICATIONS. OTHERWISE, WE WILL FOLLOW UP WITH AM LABS AND CONTINUE TO MONITOR. - Past Medical History Past Medical History: Hypertension, Dyslipidemia, Diabetes, Renal Disease, Hypothyroidism, COPD - Past Surgical History Surgical History: CABG/Valve Surgery, Cholecystectomy, Ortho Surgery - Family History Family Medical History: Diabetes Mellitus, Cancer, [place], Coronary Artery Disease, Hypertension - Social History Does patient currently use any type of tobacco product: No Have you used tobacco products in the last 12 months: No Type of Tobacco Use: None Does any household member use tobacco: No Alcohol Use: None Prescription drug monitoring program results: PDMP reviewed and no concerns identified - Medications Home Medications: labetalol Allergy (Verified 11/03/17 18:04) Sulfa (Sulfonamide Antibiotics) [SULFA] Allergy (Verified 11/03/17 18:04) CONTINUE taking the following medications carvedilol [Coreg] 6.25 mg PO BID 09/22/18 [History] fluticasone furoate-vilanterol [Breo Ellipta] 1 puff INHALATION PRN PRN 09/22/18 [History] losartan 50 mg PO HS 09/22/18 [History] potassium chloride 10 meq PO BID 09/22/18 [History] - Review of Systems Constitutional: Weakness Eyes: No Symptoms Reported ENT: No Symptoms Reported Respiratory: No Symptoms Reported Cardiovascular: Chest Pain Gastrointestinal: See HPI, Nausea, Vomiting. denies: Abdominal Pain, Diarrhea, Constipation Musculoskeletal: No Symptoms Reported Skin: No Symptoms Reported Neurological: Weakness - Physical Exam Vital Signs: Temperature 98.4 F Pulse Rate [Left] 83 Pulse Rate 96 Respiratory Rate 21 Blood Pressure [Right Arm] 152/65 Blood Pressure [Left Calf] 128/53 Blood Pressure [Left Arm] 101/49 Blood Pressure 164/72 O2 Sat by Pulse Oximetry 100 Oriented: Normal Eyes: Normal Ear: Normal Nose: Normal Throat: Normal Respiratory: Diminished Throughout Cardiovascular: Normal. negative: S3, S4, Murmur : Normal Auscultation: Bowel Sounds: Normal Palpation: Normal Tenderness: Normal Skin: Normal Musculoskeletal: Normal Psychiatric: Normal Mood Description: Calm Affect: Normal Speech Pattern: Clear - Assessment/Plan (1) Chest pain, rule out acute myocardial infarction Status: Acute Plan: SERIAL CARDIAC ENZYMES AND EKG, WOOD MILLER, NITRO, SUPPLEMENTAL OXYGEN, CONTINUE TO MONITOR (2) Nausea & vomiting Qualifiers: Vomiting type: unspecified Vomiting Intractability: non-intractable Qualified Code(s): R11.2 - Nausea with vomiting, unspecified Status: Acute - Allergies Allergies/Adverse Reactions: Allergies Allergy/AdvReac Type Severity Reaction Status Date / Time labetalol Allergy Verified 11/03/17 18:04 Sulfa (Sulfonamide Allergy Verified 11/03/17 18:04 Antibiotics) [SULFA]
[2018-09-22 17:53] LABS: CKMB % 3.7 % (<4); TROPONIN I 1.41 ng/mL (0-1.5)
[2018-09-22 17:55] LABS: CREATINE KINASE MB 9.4 ng/mL (0-4.0)
[2018-09-22] MEDS: SNACK - Diabetic Appropriate PO SCH (20:20)
[2018-09-22] MEDS ORDERED: LEVEMIR SC SCH (21:00)
[2018-09-22] MEDS: COLACE CAP 100 MG PO SCH (21:11)
[2018-09-22] MEDS: ZOCOR TAB 40 MG PO SCH (21:12)
[2018-09-22] MEDS: LOVENOX INJ 60 MG SYR SC SCH (21:12)
[2018-09-22] MEDS: PULMICORT NEB TX 0.5 MG NEB SCH ×2 (21:36→21:39)
[2018-09-22] MEDS: PROVENTIL NEB TX 0.083% 2.5MG/ 3ML NEB PRN (21:36)
[2018-09-22] MEDS ORDERED: COZAAR PO SCH (21:49)
[2018-09-22] MEDS: COREG TAB 6.25 MG PO SCH (21:58)
[2018-09-22 23:55] LABS: CKMB % 3.2 % (<4)
[2018-09-22 23:57] LABS: CREATINE KINASE MB 8.1 ng/mL (0-4.0)
[2018-09-22 23:58] LABS: TROPONIN I 1.82 ng/mL (0-1.5)
[2018-09-23 05:25] LABS: BASOPHILS % (AUTO) 0.8 % (0.2-1.0); EOSINOPHILS # (AUTO) 0.1 x10^3/uL (0.0-0.2); EOSINOPHILS % (AUTO) 1.5 % (0.9-2.9); HEMATOCRIT 38.6 % (36.0-47.0); HEMOGLOBIN 12.4 g/dL (12.0-16.0); LYMPHOCYTES # (AUTO) 1.2 X10^3/uL (1.3-2.9); LYMPHOCYTES % (AUTO) 21.3 % (21.0-51.0); MEAN CORPUSCULAR HEMOGLOBIN 28.9 pg (27.0-34.0); MEAN CORPUSCULAR HGB CONC 32.2 g/dL (33.0-35.0); MEAN CORPUSCULAR VOLUME 89.8 fL (80.0-100.0); MEAN PLATELET VOLUME 10.2 fL (7.4-11.0); MONOCYTES # (AUTO) 0.5 x10^3/uL (0.3-0.8); MONOCYTES % (AUTO) 7.8 % (0.0-13.0); NEUTROPHILS % (AUTO) 68.6 % (42.0-75.0); PLATELET COUNT 164 X10^3/uL (150.0-450.0); RED CELL DISTRIBUTION WIDTH 14.2 % (11.6-16.5); WHITE BLOOD COUNT 5.9 X10^3/uL (3.6-10.0)
[2018-09-23 05:48] LABS: CALCIUM 8.8 mg/dL (8.5-10.1); COR CA(FOR HYPOALB) 9.6 mg/dL (8.5-10.1); CREATININE 1.3 mg/dL (0.55-1.02); TOTAL PROTEIN 6.2 g/dL (6.4-8.2)
[2018-09-23 06:07] LABS: CKMB % 2.8 % (<4); TROPONIN I 1.07 ng/mL (0-1.5)
[2018-09-23] MEDS: HumuLIN R SUBCUT PRN ×4 (06:11→22:27)
[2018-09-23] MEDS: NS 1000 ML 1,000 ML IV SCH ×2 (06:19→17:07)
[2018-09-23] MEDS ORDERED: LEVEMIR SC SCH (07:00)
[2018-09-23] MEDS: PULMICORT NEB TX 0.5 MG NEB SCH ×2 (09:09→20:21)
[2018-09-23] MEDS: PROVENTIL NEB TX 0.083% 2.5MG/ 3ML NEB PRN ×2 (09:16→20:20)
[2018-09-23] MEDS: LOVENOX INJ 60 MG SYR SC SCH ×2 (09:29→21:16)
[2018-09-23] MEDS: ASPIRIN EC 81 MG PO SCH (09:30)
[2018-09-23] MEDS: PROTONIX TAB 40 MG PO SCH ×2 (09:30→21:13)
[2018-09-23] MEDS: SYNTHROID 88 mcg TAB PO SCH (09:30)
[2018-09-23] MEDS: COREG TAB 6.25 MG PO SCH ×2 (09:30→21:15)
[2018-09-23] MEDS: ULTRAM PO SCH ×2 (09:30→21:15)
[2018-09-23] MEDS: ANTIVERT TAB 25 MG PO SCH ×2 (09:31→21:16)
[2018-09-23] MEDS: TAB-A-VITE PO SCH (09:31)
[2018-09-23] MEDS: ECOTRIN TAB 325 MG PO SCH (11:38)
[2018-09-23] MEDS: PLAVIX PO SCH (11:41)
[2018-09-23 11:53] LABS: TROPONIN I 0.93 ng/mL (0-1.5)
[2018-09-23 12:04] LABS: CREATINE KINASE MB 4.2 ng/mL (0-4.0)
[2018-09-23 17:30] LABS: CKMB % 1.8 % (<4); CREATINE KINASE MB 3.9 ng/mL (0-4.0); TROPONIN I 0.77 ng/mL (0-1.5)
[2018-09-23] MEDS: COZAAR PO SCH ×2 (19:20→21:55)
[2018-09-23] MEDS: SNACK - Diabetic Appropriate PO SCH (20:10)
[2018-09-23] MEDS ORDERED: NORVASC TAB 5 MG PO SCH (21:00)
[2018-09-23] MEDS ORDERED: COZAAR PO SCH (21:00)
[2018-09-23] MEDS: COLACE CAP 100 MG PO SCH (21:14)
[2018-09-23] MEDS: ZOCOR TAB 40 MG PO SCH (21:14)
[2018-09-23] MEDS: ZyrTEC TAB 10 MG PO SCH (21:16)
[2018-09-24] MEDS: NS 1000 ML 1,000 ML IV SCH ×2 (01:59→11:11)
[2018-09-24] MEDS: HumuLIN R SUBCUT PRN (06:11)
[2018-09-24 06:44] LABS: BASOPHILS % (AUTO) 0.8 % (0.2-1.0); EOSINOPHILS # (AUTO) 0.1 x10^3/uL (0.0-0.2); EOSINOPHILS % (AUTO) 1.9 % (0.9-2.9); HEMATOCRIT 37.9 % (36.0-47.0); HEMOGLOBIN 12.4 g/dL (12.0-16.0); LYMPHOCYTES # (AUTO) 1.2 X10^3/uL (1.3-2.9); LYMPHOCYTES % (AUTO) 19.6 % (21.0-51.0); MEAN CORPUSCULAR HGB CONC 32.7 g/dL (33.0-35.0); MEAN CORPUSCULAR VOLUME 88.7 fL (80.0-100.0); MONOCYTES # (AUTO) 0.5 x10^3/uL (0.3-0.8); MONOCYTES % (AUTO) 7.8 % (0.0-13.0); NEUTROPHILS # (AUTO) 4.3 x10^3/uL (2.2-4.8); NEUTROPHILS % (AUTO) 69.9 % (42.0-75.0); PLATELET COUNT 159 X10^3/uL (150.0-450.0); RED BLOOD COUNT 4.28 X10^6/uL (3.5-5.4); RED CELL DISTRIBUTION WIDTH 13.5 % (11.6-16.5); WHITE BLOOD COUNT 6.1 X10^3/uL (3.6-10.0)
[2018-09-24 07:18] LABS: ALBUMIN 2.9 g/dL (3.4-5.0); CALCIUM 8.9 mg/dL (8.5-10.1); CARBON DIOXIDE 28.1 mmol/L (21-32); COR CA(FOR HYPOALB) 9.8 mg/dL (8.5-10.1); CREATININE 1.26 mg/dL (0.55-1.02); TOTAL PROTEIN 6.3 g/dL (6.4-8.2)
[2018-09-24] MEDS: PROVENTIL NEB TX 0.083% 2.5MG/ 3ML NEB PRN (08:48)
[2018-09-24] MEDS: PULMICORT NEB TX 0.5 MG NEB SCH (08:49)
[2018-09-24] MEDS: PLAVIX PO SCH (08:50)
[2018-09-24] MEDS: LOVENOX INJ 60 MG SYR SC SCH (08:50)
[2018-09-24] MEDS: ECOTRIN TAB 325 MG PO SCH (08:51)
[2018-09-24] MEDS: ULTRAM PO SCH (08:51)
[2018-09-24] MEDS: ANTIVERT TAB 25 MG PO SCH (08:51)
[2018-09-24] MEDS: TAB-A-VITE PO SCH (08:51)
[2018-09-24] MEDS: PROTONIX TAB 40 MG PO SCH (08:51)
[2018-09-24] MEDS: COREG TAB 6.25 MG PO SCH (08:51)
[2018-09-24] MEDS: SYNTHROID 88 mcg TAB PO SCH (08:52)
[2018-09-24 11:34] VITALS: BP 191/80
--- NOTE | 2018-09-30 09:34 | DR.NAUSEAF ---
HPI Time Seen Time Seen by Provider: 09/22/18 05:29 Primary Care Physician Primary Care Physician: césar Complaints Chief Complaint:: pt states" I woke up at 3 am vomiting I can't keep anything down I feel weak and my blood pressure is up" Source History Provided: Patient Mode of Arrival Mode of Arrival: Wheelchair Timing Onset of Chief Complaint: 09/22/18 Severity Number of episodes of vomiting over last 24 hours: 3 Context Recent: None PMH PMH Past Medical History: Yes Past Medical History: COPD, Diabetes, Dyslipidemia, Hypertension, Hypothyroidism and Renal Disease Past Surgical History: Yes Surgical History: CABG/Valve Surgery, Cholecystectomy, Joint Replacement and Ortho Surgery Family History History of Family Medical Conditions: Yes Family Medical History: Diabetes Mellitus, Cancer, Coronary Artery Disease and Hypertension Social History Does any household member use tobacco: No Alcohol Use: None Do you use any recreational Drugs:: No Lives With: Family Lives Where: Home infectious screening In the last 2 months have you had wt loss of >10#?: NO Have you had fever, night sweats or hemotysis?: No Have you traveled outside the country in the last 6 months?: No Isolation: Standard PE Vital Signs Vitals: Temperature 98.2 F Pulse Rate [Left] 83 Pulse Rate 72 Respiratory Rate 19 Blood Pressure [Right Arm] 152/65 Blood Pressure [Left Calf] 128/53 Blood Pressure [Left Arm] 101/49 Blood Pressure 191/80 O2 Sat by Pulse Oximetry 100 ROR Labs Reviewed Result Diagrams: 09/24/18 05:26 09/24/18 05:26 Laboratory: WBC 6.1 X10^3/uL (3.6-10.0) 09/24/18 05:26 RBC 4.28 X10^6/uL (3.5-5.4) 09/24/18 05:26 Hgb 12.4 g/dL (12.0-16.0) 09/24/18 05:26 Hct 37.9 % (36.0-47.0) 09/24/18 05:26 MCV 88.7 fL (80.0-100.0) 09/24/18 05:26 MCH 29.0 pg (27.0-34.0) 09/24/18 05:26 MCHC 32.7 g/dL (33.0-35.0) L 09/24/18 05:26 RDW 13.5 % (11.6-16.5) 09/24/18 05:26 Plt Count 159 X10^3/uL (150.0-450.0) 09/24/18 05:26 MPV 10.0 fL (7.4-11.0) 09/24/18 05:26 Neut % (Auto) 69.9 % (42.0-75.0) 09/24/18 05:26 Lymph % (Auto) 19.6 % (21.0-51.0) L 09/24/18 05:26 [place] % (Auto) 7.8 % (0.0-13.0) 09/24/18 05:26 Eos % (Auto) 1.9 % (0.9-2.9) 09/24/18 05:26 Baso % (Auto) 0.8 % (0.2-1.0) 09/24/18 05:26 Neut # (Auto) 4.3 x10^3/uL (2.2-4.8) 09/24/18 05:26 Lymph # (Auto) 1.2 X10^3/uL (1.3-2.9) L 09/24/18 05:26 [place] # (Auto) 0.5 x10^3/uL (0.3-0.8) 09/24/18 05:26 Eos # (Auto) 0.1 x10^3/uL (0.0-0.2) 09/24/18 05:26 Baso # (Auto) 0.0 X10^3/uL (0.0-0.1) 09/24/18 05:26 Absolute Nucleated RBC 0.0 /100WBC 09/24/18 05:26 INR Target Range - 09/22/18 05:45 INR 1.01 (0.8-1.3) 09/22/18 05:45 APTT 35.7 SECONDS (22.9-36.5) 09/22/18 05:45 PTT Comment - 09/22/18 05:45 Sodium 143 mmol/L (136-145) 09/24/18 05:26 Corrected Sodium 147 mmol/L (136-145) H 09/24/18 05:26 Potassium 4.6 mmol/L (3.5-5.1) 09/24/18 05:26 Chloride 108 mmol/L (98-107) H 09/24/18 05:26 Carbon Dioxide 28.1 mmol/L (21-32) 09/24/18 05:26 BUN 17 mg/dL (7-18) 09/24/18 05:26 Creatinine 1.26 mg/dL (0.55-1.02) H 09/24/18 05:26 Est GFR (MDRD) Af Amer 53 (>60) L 09/24/18 05:26 Est GFR (MDRD) Non-Af 44 (>60) L 09/24/18 05:26 Glucose 263 mg/dL (65-99) H 09/24/18 05:26 POC Glucose (mg/dL) 246 mg/dL (65-99) H 09/24/18 05:54 Calcium 8.9 mg/dL (8.5-10.1) 09/24/18 05:26 Corrected Calcium 9.8 mg/dL (8.5-10.1) 09/24/18 05:26 Magnesium 1.8 mg/dL (1.7-2.9) 09/22/18 10:50 Total Bilirubin 0.20 mg/dL (0.2-1.0) 09/24/18 05:26 AST 25 Units/L (15-37) 09/24/18 05:26 ALT 21 Units/L (12-78) 09/24/18 05:26 Alkaline Phosphatase 64 Units/L (46-116) 09/24/18 05:26 Creatine Kinase 219 Units/L (26-192) H 09/23/18 16:58 CK-MB (CK-2) 3.9 ng/mL (0-4.0) 09/23/18 16:58 CK/CKMB % Calc 1.8 % (<4) 09/23/18 16:58 Troponin I 0.77 ng/mL (0-1.5) 09/23/18 16:58 Total Protein 6.3 g/dL (6.4-8.2) L 09/24/18 05:26 Albumin 2.9 g/dL (3.4-5.0) L 09/24/18 05:26 Globulin 3.4 g/dL (2.5-4.5) 09/24/18 05:26 Albumin/Globulin Ratio 0.9 Ratio (1.1-2.1) L 09/24/18 05:26 Amylase 46 Units/L (25-115) 09/22/18 05:20 Lipase 45 Units/L (73-393) L 09/22/18 05:20 Opioid Opioid Risk Tool Total: 0 Total Score Risk Category: Low Risk Copyright: [facility] predicting aberrant behaviors Diagnosis Discharge Problem: Nausea & vomiting Qualifiers: Vomiting type: unspecified Vomiting Intractability: non-intractable Qualified Code(s): R11.2 - Nausea with vomiting, unspecified HTN (hypertension) Qualifiers: Hypertension type: essential hypertension Qualified Code(s): I10 - Essential (primary) hypertension Instructions Instructions: Chronic Obstructive Pulmonary Disease Exacerbation, [id number] Nausea and Vomiting, Adult, Teyj-[id number] Hypertension, [id number] Type 2 Diabetes Mellitus, Diagnosis, Adult, [id number]
== END 2018-09-24 12:00 | disposition home or self-care (01) ==
LOC: ICU 04:55 → ER 04:55 → ICU 08:14
PROVIDERS: ADMIT Internal Medicine; ATTEND Internal Medicine
DX: E03.8 Other specified hypothyroidism; E78.2 Mixed hyperlipidemia; I10 Essential (primary) hypertension; E11.65 Type 2 diabetes mellitus with hyperglycemia; R11.2 Nausea with vomiting, unspecified; I25.10 Atherosclerotic heart disease of native coronary artery without angina pectoris; R07.89 Other chest pain; I95.89 Other hypotension
CPT/HCPCS: 36415; 71010; 71045; 80053; 82150; 82550; 82553; 83690; 83735; 84132; 84484; 85025; 85610; 85730; 93005; 93306; 94640; 96365; 96367; 96372; 96374; 96375; 99284; A4222; G0378; J0360; J1650; J1815; J2405; J7030; J7613; J7626

== ENCOUNTER 2018-12-15 17:16 | Observation (INO) ==
[2018-12-15 18:11] LABS: BASOPHILS % (AUTO) 0.4 % (0.2-1.0); EOSINOPHILS # (AUTO) 0.1 x10^3/uL (0.0-0.2); EOSINOPHILS % (AUTO) 0.8 % (0.9-2.9); HEMATOCRIT 44.5 % (36.0-47.0); LYMPHOCYTES # (AUTO) 1.5 X10^3/uL (1.3-2.9); LYMPHOCYTES % (AUTO) 18.4 % (21.0-51.0); MEAN CORPUSCULAR HEMOGLOBIN 28.9 pg (27.0-34.0); MEAN CORPUSCULAR HGB CONC 33.8 g/dL (33.0-35.0); MEAN CORPUSCULAR VOLUME 85.6 fL (80.0-100.0); MEAN PLATELET VOLUME 9.3 fL (7.4-11.0); MONOCYTES # (AUTO) 0.6 x10^3/uL (0.3-0.8); MONOCYTES % (AUTO) 7.1 % (0.0-13.0); NEUTROPHILS # (AUTO) 5.9 x10^3/uL (2.2-4.8); NEUTROPHILS % (AUTO) 73.3 % (42.0-75.0); PLATELET COUNT 216 X10^3/uL (150.0-450.0); WHITE BLOOD COUNT 8.1 X10^3/uL (3.6-10.0)
[2018-12-15 18:26] LABS: ALANINE AMINOTRANSFERASE 22 Units/L (12-78); ALBUMIN 4.1 g/dL (3.4-5.0); ALKALINE PHOSPHATASE 75 Units/L (46-116); AMYLASE 38 Units/L (25-115); ASPARTATE AMINO TRANSFERASE 21 Units/L (15-37); BLOOD UREA NITROGEN 25 mg/dL (7-18); CALCIUM 8.9 mg/dL (8.5-10.1); CARBON DIOXIDE 28.9 mmol/L (21-32); CHLORIDE 98 mmol/L (98-107); CKMB % 1.4 % (<4); COR NA(FOR HYPERGLY) 139 mmol/L (136-145); CREATINE KINASE 186 Units/L (26-192); CREATINE KINASE MB 2.6 ng/mL (0-4.0); CREATININE 1.77 mg/dL (0.55-1.02); LIPASE 40 Units/L (73-393); SODIUM 138 mmol/L (136-145); TROPONIN I < 0.02 ng/mL (0-1.5); eGFR NON BLACK RACES 29 (>60)
[2018-12-15 18:49] VITALS: BMI 39.1
--- NOTE | 2018-12-15 18:56 | RAD ---
HISTORY: Chest pain Study: Single-view of the chest Comparison: September 22, 2018 Findings: The trachea is midline. The cardiac silhouette is enlarged. The lungs are clear without focal infiltrate or effusion. An oval-shaped density again projects over the left upper quadrant of the abdomen similar to prior exam. Previous CT of the abdomen and pelvis performed on November 04, 2017 demonstrated a large calcified lesion within the spleen which was noted as unchanged dating back to at least February 23, 2015. Postoperative changes of midline sternotomy are noted. IMPRESSION: 1. Cardiomegaly. Reported By:
[2018-12-15 19:59] LABS: APPEARANCE,URINE SLIGHTLY HAZY (CLEAR); BILIRUBIN,URINE NEGATIVE (NEGATIVE); BLOOD/HEMOGLOBIN,URINE 1+ (NEGATIVE); COLOR,URINE YELLOW (YELLOW); GLUCOSE, URINE NEGATIVE (NEGATIVE); KETONES,URINE NEGATIVE (NEGATIVE); NITRITES,URINE NEGATIVE (NEGATIVE); PROTEIN,URINE 1+ (NEGATIVE); UROBILINOGEN,URINE NORMAL (NORMAL)
[2018-12-15 20:00] LABS: BACTERIA,URINE 1+ /HPF (NEGATIVE); LEUKOCYTE ESTERASE ,URINE 1+ (NEGATIVE); SQUAMOUS EPITHELIAL CELL,UR MODERATE /HPF (NEGATIVE)
[2018-12-15] MEDS: SNACK - Diabetic Appropriate PO SCH (20:02)
[2018-12-15] MEDS: PROVENTIL NEB TX 0.083% 2.5MG/ 3ML NEB SCH (20:33)
[2018-12-15] MEDS: PULMICORT NEB TX 0.5 MG NEB SCH (20:33)
[2018-12-15] MEDS: HumuLIN R SUBCUT PRN (20:49)
[2018-12-15] MEDS: ZOFRAN INJ 4 MG VIAL IVP PRN (21:11)
[2018-12-15] MEDS: ULTRAM PO PRN (21:11)
[2018-12-15 22:26] LABS: CKMB % 1.1 % (<4); CREATINE KINASE 175 Units/L (26-192); TROPONIN I < 0.02 ng/mL (0-1.5)
[2018-12-16 02:15] LABS: CKMB % 0.9 % (<4); CREATINE KINASE 182 Units/L (26-192); CREATINE KINASE MB 1.7 ng/mL (0-4.0); TROPONIN I < 0.02 ng/mL (0-1.5)
[2018-12-16 06:13] LABS: BASOPHILS % (AUTO) 0.6 % (0.2-1.0); EOSINOPHILS # (AUTO) 0.1 x10^3/uL (0.0-0.2); EOSINOPHILS % (AUTO) 1.2 % (0.9-2.9); HEMATOCRIT 41.5 % (36.0-47.0); LYMPHOCYTES # (AUTO) 1.4 X10^3/uL (1.3-2.9); MEAN CORPUSCULAR HEMOGLOBIN 28.8 pg (27.0-34.0); MEAN CORPUSCULAR HGB CONC 33.8 g/dL (33.0-35.0); MEAN CORPUSCULAR VOLUME 85.1 fL (80.0-100.0); MEAN PLATELET VOLUME 9.4 fL (7.4-11.0); MONOCYTES # (AUTO) 0.6 x10^3/uL (0.3-0.8); MONOCYTES % (AUTO) 7.9 % (0.0-13.0); NEUTROPHILS % (AUTO) 70.3 % (42.0-75.0); PLATELET COUNT 159 X10^3/uL (150.0-450.0); RED BLOOD COUNT 4.88 X10^6/uL (3.5-5.4); WHITE BLOOD COUNT 7.1 X10^3/uL (3.6-10.0)
[2018-12-16 07:04] LABS: ALANINE AMINOTRANSFERASE 19 Units/L (12-78); ALBUMIN 3.6 g/dL (3.4-5.0); ALKALINE PHOSPHATASE 65 Units/L (46-116); ASPARTATE AMINO TRANSFERASE 22 Units/L (15-37); BLOOD UREA NITROGEN 22 mg/dL (7-18); CALCIUM 8.8 mg/dL (8.5-10.1); CARBON DIOXIDE 29.3 mmol/L (21-32); CHLORIDE 102 mmol/L (98-107); COR NA(FOR HYPERGLY) 142 mmol/L (136-145); CREATININE 1.44 mg/dL (0.55-1.02); SODIUM 141 mmol/L (136-145); eGFR NON BLACK RACES 37 (>60)
[2018-12-16] MEDS: PULMICORT NEB TX 0.5 MG NEB SCH ×2 (08:10→20:20)
[2018-12-16] MEDS: PROVENTIL NEB TX 0.083% 2.5MG/ 3ML NEB SCH ×2 (08:10→20:20)
[2018-12-16] MEDS: ZOFRAN INJ 4 MG VIAL IVP PRN (08:32)
[2018-12-16] MEDS ORDERED: PHARMACY CONSULT - DOSE _____ XX SCH (09:00)
[2018-12-16] MEDS ORDERED: TORADOL 60 MG VIAL IM ONE (10:40)
[2018-12-16] MEDS: PEPCID 20 MG IV PREMIX* 20 MG/50 ML BAG IV SCH ×2 (11:29→20:39)
[2018-12-16] MEDS: PROTONIX INJ 40 MG VIAL IVP SCH ×2 (11:29→20:41)
[2018-12-16] MEDS: NS 1000 ML 1,000 ML IV SCH (11:29)
[2018-12-16] MEDS ORDERED: ALLEGRA ONE (12:29)
[2018-12-16] MEDS: SYNTHROID 88 mcg TAB PO SCH (12:30)
[2018-12-16] MEDS: COREG TAB 6.25 MG PO SCH ×2 (12:31→20:41)
[2018-12-16] MEDS: ALLEGRA PO SCH (12:31)
[2018-12-16] MEDS: COLACE CAP 100 MG PO SCH ×2 (12:32→20:48)
[2018-12-16] MEDS: MICRO K EXTEN CAP 10 MEQ PO SCH (12:33)
[2018-12-16] MEDS: HumuLIN R SUBCUT PRN ×2 (16:37→20:46)
[2018-12-16] MEDS: ULTRAM PO PRN (19:10)
[2018-12-16] MEDS: ZOCOR TAB 40 MG PO SCH (20:41)
[2018-12-16] MEDS: DIOVAN TAB 160 MG PO SCH (20:41)
[2018-12-16] MEDS: SNACK - Diabetic Appropriate PO SCH (20:46)
[2018-12-16] MEDS: TOUJEO SOLOSTAR PEN SC SCH (20:48)
[2018-12-16] MEDS ORDERED: PATIENT'S HOME MEDICATION (Levocetirizine Dihydrochloride [Xyzal] 5 MG) PO SCH (21:00)
--- NOTE | 2018-12-16 21:00 | DR.CONSULT ---
Consult - Consultation for Day of: Date: 12/16/18 - Chief Complaint Chief Complaint: Patient referred for abdominal pain, nausea and vomiting. Patient with complaints of nausea, vomiting, abdominal pain and constipation. - History of Present Illness History of Present Illness: Patient is a 78yo female who referred for abdominal pain, nausea and vomiting. Patient with complaints of nausea since , vomiting, abdominal pain and constipation last BM today. Patient denies dysphagia, dyspepsia, diarrhea, melena and hematochezia. ast colon last year with with 3 adenomatous colon polyps, Last EGD was last year with as well, patient states is was normal. EGD performed 09/15/14 showed larger polypoid multilobulated ulcerated mass in gastric antrum (hyperplastic) which was successfully removed, distal esophagitis and moderate gastritis. Patient noted to have epigastric tenderness. Hgb 14.0, Hct 41.5, Plt 159, BUN 22, Creatinine 1.44, T. Bili 0.50, AST 22, ALT 19, Alk Phos 126. - Past Medical History Past Medical History: Hypertension, Dyslipidemia, Diabetes, Renal Disease, Hypothyroidism, COPD - Past Surgical History Surgical History: CABG/Valve Surgery, Cholecystectomy, Joint Replacement, Ortho Surgery - Family History Family Medical History: Diabetes Mellitus, Cancer, Coronary Artery Disease, Hypertension - Social History Type of Tobacco Use: None Does any household member use tobacco: No Alcohol Use: None Drug Use: None - Medications Home Medications: labetalol Allergy (Verified 11/03/17 18:04) Sulfa (Sulfonamide Antibiotics) [SULFA] Allergy (Verified 11/03/17 18:04) CONTINUE taking the following medications clopidogrel 75 mg PO HS 12/15/18 [History] insulin glargine U-300 conc [Toujeo SoloStar U-300 Insulin] 60 units SUBCUT HS 12/15/18 [History] ipratropium bromide 1 appful INHALATION TID PRN MDD 3 12/15/18 [History] valsartan 320 mg PO HS 12/15/18 [History] - Review of Systems Gastrointestinal: Nausea, Vomiting, Abdominal Pain, Constipation. denies: Diarrhea, Melena, Hematochezia - Physical Exam Vital Signs: Temperature 98.0 F Pulse Rate [Left Radial] 78 Pulse Rate 74 Respiratory Rate 17 Blood Pressure [Right Arm] 188/84 Blood Pressure [Left Calf] 128/53 Blood Pressure [Left Arm] 182/79 Blood Pressure 191/80 O2 Sat by Pulse Oximetry 98 Oriented: Normal Eyes: Normal Ear: Normal Nose: Normal Throat: Normal Respiratory: Clear Throughout Cardiovascular: Normal : Normal Auscultation: Bowel Sounds: Normal Palpation: Normal, Other (no distention). negative: Spleen Enlarged, Liver Enlarged, Mass Pulsatile Tenderness: Epigastric Skin: Normal Musculoskeletal: Normal Psychiatric: Normal Mood Description: Calm Affect: Normal Speech Pattern: Clear, Appropriate - Plan Plan: Assessment. 1. Abdominal pain, nausea, vominting r/o gastric ulcer, gastric adenocarcinoma. Plan. 1. EGD in am, Protonix IV, Zofran PRN. Plan reviewed with Dr. Solitario - Allergies Allergies/Adverse Reactions: Allergies Allergy/AdvReac Type Severity Reaction Status Date / Time labetalol Allergy Verified 11/03/17 18:04 Sulfa (Sulfonamide Allergy Verified 11/03/17 18:04 Antibiotics) [SULFA]
[2018-12-17] MEDS: NS 1000 ML 1,000 ML IV SCH ×2 (01:36→15:28)
[2018-12-17 05:42] LABS: BASOPHILS # (AUTO) 0.1 X10^3/uL (0.0-0.1); BASOPHILS % (AUTO) 0.8 % (0.2-1.0); EOSINOPHILS # (AUTO) 0.1 x10^3/uL (0.0-0.2); EOSINOPHILS % (AUTO) 2.1 % (0.9-2.9); HEMATOCRIT 42.8 % (36.0-47.0); HEMOGLOBIN 14.3 g/dL (12.0-16.0); LYMPHOCYTES # (AUTO) 1.9 X10^3/uL (1.3-2.9); LYMPHOCYTES % (AUTO) 26.7 % (21.0-51.0); MEAN CORPUSCULAR HEMOGLOBIN 28.9 pg (27.0-34.0); MEAN CORPUSCULAR HGB CONC 33.3 g/dL (33.0-35.0); MEAN CORPUSCULAR VOLUME 86.8 fL (80.0-100.0); MEAN PLATELET VOLUME 9.9 fL (7.4-11.0); MONOCYTES # (AUTO) 0.7 x10^3/uL (0.3-0.8); MONOCYTES % (AUTO) 10.2 % (0.0-13.0); NEUTROPHILS # (AUTO) 4.3 x10^3/uL (2.2-4.8); NEUTROPHILS % (AUTO) 60.2 % (42.0-75.0); PLATELET COUNT 154 X10^3/uL (150.0-450.0); RED BLOOD COUNT 4.93 X10^6/uL (3.5-5.4); RED CELL DISTRIBUTION WIDTH 14.2 % (11.6-16.5); WHITE BLOOD COUNT 7.1 X10^3/uL (3.6-10.0)
[2018-12-17 05:52] LABS: ALANINE AMINOTRANSFERASE 21 Units/L (12-78); ALBUMIN 3.4 g/dL (3.4-5.0); ALKALINE PHOSPHATASE 66 Units/L (46-116); ASPARTATE AMINO TRANSFERASE 24 Units/L (15-37); BLOOD UREA NITROGEN 22 mg/dL (7-18); CALCIUM 8.4 mg/dL (8.5-10.1); CHLORIDE 104 mmol/L (98-107); COR NA(FOR HYPERGLY) 142 mmol/L (136-145); CREATININE 1.56 mg/dL (0.55-1.02); SODIUM 141 mmol/L (136-145); TOTAL PROTEIN 6.7 g/dL (6.4-8.2); eGFR NON BLACK RACES 34 (>60)
[2018-12-17] MEDS: PROVENTIL NEB TX 0.083% 2.5MG/ 3ML NEB SCH ×2 (08:14→20:55)
[2018-12-17] MEDS: PULMICORT NEB TX 0.5 MG NEB SCH ×2 (08:14→20:55)
[2018-12-17] MEDS: PROTONIX INJ 40 MG VIAL IVP SCH ×2 (08:16→21:13)
[2018-12-17] MEDS: ULTRAM PO PRN (08:16)
[2018-12-17] MEDS: COREG TAB 6.25 MG PO SCH ×2 (08:16→21:00)
[2018-12-17] MEDS: ALLEGRA PO SCH (08:20)
[2018-12-17] MEDS: COLACE CAP 100 MG PO SCH ×2 (08:21→20:59)
[2018-12-17] MEDS: MICRO K EXTEN CAP 10 MEQ PO SCH (09:19)
[2018-12-17] MEDS: TAB-A-VITE PO SCH (09:20)
[2018-12-17] MEDS: SYNTHROID 88 mcg TAB PO SCH (09:20)
[2018-12-17] MEDS ORDERED: CATAPRES-TTS-1 TD SCH (11:00)
[2018-12-17] MEDS ORDERED: DIPRIVAN VIAL 20 ML ONE (11:28)
[2018-12-17] MEDS ORDERED: XYLOCAINE 2 % (PLAIN) ONE ×2 (11:34→15:49)
[2018-12-17] MEDS ORDERED: MORPHINE SULFATE INJ 2 MG INJ IVP PRN (14:05)
[2018-12-17] MEDS: PEPCID 20 MG IV PREMIX* 20 MG/50 ML BAG IV SCH (14:09)
[2018-12-17] MEDS ORDERED: DIPRIVAN VIAL ONE (15:49)
[2018-12-17] MEDS: HumuLIN R SUBCUT PRN ×2 (16:45→21:00)
--- NOTE | 2018-12-17 17:21 | NM ---
History: Nausea Exam: Nuclear medicine gastric emptying scan Comparison: None Technique: The patient was given 0.5 mCi of sulfur colloid mixed with solid foods and delayed images were obtained. Findings: There was prompt emptying of the stomach into the small bowel . There is questionable mild reflux seen in the lower esophagus on the delayed images. The T half-life is 44 minutes with normal considered less than 90 minutes. IMPRESSION: Normal gastric emptying time with questionable mild gastroesophageal reflux on the delayed images Reported By:
[2018-12-17] MEDS: SNACK - Diabetic Appropriate PO SCH (20:00)
[2018-12-17] MEDS: DIOVAN TAB 160 MG PO SCH (20:59)
[2018-12-17] MEDS: ZOCOR TAB 40 MG PO SCH (21:00)
[2018-12-17] MEDS: TOUJEO SOLOSTAR PEN SC SCH (21:14)
--- NOTE | 2018-12-17 21:29 | PCM.PROG ---
Progress Note - Progress Note for Day of Date of Exam: 12/16/18 - Subjective Subjective: WAS ADMITTED FOR EVALUATION OF CHEST PAIN AND NAUSEA. SHE HAS A HISTORY OF CAD AND OH. TODAY, SHE IS ALERT AND ORIENTED, LYING IN BED ON MORNING ROUNDS. SHE DENIES CHEST PAIN THIS MORNING, BUT DOES REPORT DIFFUSE ABDOMINAL PAIN AND NAUSEA. PATIENT REPORTS THAT SHE IS UNABLE TO HOLD ANY FOODS OR LIQUIDS DOWN. ON EXAMINATION, HEART IS REGULAR IN RATE AND RHYTHM. BILATERAL LUNGS ARE NOTED WITH DIMINISHED LUNG SOUNDS THROUGHOUT. ABDOMEN IS ROUND, SOFT, AND NOTED WITH NORMAL BOWEL SOUNDS IN ALL QUADRANTS. DIFFUSE TENDERNESS IS NOTED TO PALPATION. HER VITALS THIS MORNING ARE: 98.3-60-18-96%-177/81. LABS WERE OBTAINED. ABNORMAL LAB VALUES INCLUDE THE FOLLOWING: BUN 22, CREATININE 1.44, GLUCOSE 126. CARDIAC ENZYMES WITHIN NORMAL LIMITS. NO CHANGES NOTED TO EKGS. SHE IS CURRENTLY RECEIVING NORMAL SALINE AT 75ML/HR, RESPIRATORY TX, PROTONIX 40MG IV BID, AND HER HOME MEDICATIOSN WERE RESUMED. TODAY, WE WILL CONSULT GASTROENTEROLOGY AND OBTAIN A GASTRIC EMPTYING. OTHERWISE, WE WILL CONTINUE WITH CURRENT PLAN OF CARE. WE PLAN TO FOLLOW UP WITH AM LABS AND CONTINUE TO MONITOR. - Past Medical Family Social History Past Med/Fam/Surg Hx: No changes since H&P Allergies: Allergies labetalol Allergy (Verified 11/03/17 18:04) Sulfa (Sulfonamide Antibiotics) [SULFA] Allergy (Verified 11/03/17 18:04) - Review of Systems ROS: No change since H&P - Vital Signs and I&O's Vital Signs: Temperature 98.8 F Pulse Rate [Left Radial] 65 Pulse Rate 70 Respiratory Rate 20 Blood Pressure [Right Arm] 183/79 Blood Pressure [Left Calf] 128/53 Blood Pressure [Left Arm] 133/98 Blood Pressure 168/80 O2 Sat by Pulse Oximetry 95 Intake and Output: Intake & Output 12/15/18 12/16/18 12/17/18 12/18/18 11:59 11:59 11:59 11:59 Intake Total 210 / 210 2320 / 2320 660 / 660 Balance 210 / 210 2320 / 2320 660 / 660 - Physical Exam Oriented: Normal Eyes: Normal Ear: Normal Nose: Normal Throat: Normal Respiratory: Generalized, Diminished Cardiovascular: Normal : Normal Auscultation: Bowel Sounds: Normal Palpation: Normal Tenderness: Diffuse. negative: Rebound, Guarding, Rigidity Skin: Normal Musculoskeletal: Normal Psychiatric: Normal Mood Description: Calm Affect: Normal Speech Pattern: Clear, Appropriate - Laboratory and Diagnostics Result Diagrams: 12/17/18 05:17 12/17/18 05:17 Labs: Laboratory WBC 7.1 X10^3/uL (3.6-10.0) 12/17/18 05:17 RBC 4.93 X10^6/uL (3.5-5.4) 12/17/18 05:17 Hgb 14.3 g/dL (12.0-16.0) 12/17/18 05:17 Hct 42.8 % (36.0-47.0) 12/17/18 05:17 MCV 86.8 fL (80.0-100.0) 12/17/18 05:17 MCH 28.9 pg (27.0-34.0) 12/17/18 05:17 MCHC 33.3 g/dL (33.0-35.0) 12/17/18 05:17 RDW 14.2 % (11.6-16.5) 12/17/18 05:17 Plt Count 154 X10^3/uL (150.0-450.0) 12/17/18 05:17 MPV 9.9 fL (7.4-11.0) 12/17/18 05:17 Neut % (Auto) 60.2 % (42.0-75.0) 12/17/18 05:17 Lymph % (Auto) 26.7 % (21.0-51.0) 12/17/18 05:17 [place] % (Auto) 10.2 % (0.0-13.0) 12/17/18 05:17 Eos % (Auto) 2.1 % (0.9-2.9) 12/17/18 05:17 Baso % (Auto) 0.8 % (0.2-1.0) 12/17/18 05:17 Neut # (Auto) 4.3 x10^3/uL (2.2-4.8) 12/17/18 05:17 Lymph # (Auto) 1.9 X10^3/uL (1.3-2.9) 12/17/18 05:17 [place] # (Auto) 0.7 x10^3/uL (0.3-0.8) 12/17/18 05:17 Eos # (Auto) 0.1 x10^3/uL (0.0-0.2) 12/17/18 05:17 Baso # (Auto) 0.1 X10^3/uL (0.0-0.1) 12/17/18 05:17 Absolute Nucleated RBC 0.0 /100WBC 12/17/18 05:17 Sodium 141 mmol/L (136-145) 12/17/18 05:17 Corrected Sodium 142 mmol/L (136-145) 12/17/18 05:17 Potassium 4.0 mmol/L (3.5-5.1) 12/17/18 05:17 Chloride 104 mmol/L (98-107) 12/17/18 05:17 Carbon Dioxide 28.0 mmol/L (21-32) 12/17/18 05:17 BUN 22 mg/dL (7-18) H 12/17/18 05:17 Creatinine 1.56 mg/dL (0.55-1.02) H 12/17/18 05:17 Est GFR (MDRD) Af Amer 41 (>60) L 12/17/18 05:17 Est GFR (MDRD) Non-Af 34 (>60) L 12/17/18 05:17 Glucose 121 mg/dL (65-99) H 12/17/18 05:17 POC Glucose (mg/dL) 258 mg/dL (65-99) H 12/17/18 19:45 Calcium 8.4 mg/dL (8.5-10.1) L 12/17/18 05:17 Corrected Calcium TNP 12/17/18 05:17 Total Bilirubin 0.50 mg/dL (0.2-1.0) 12/17/18 05:17 AST 24 Units/L (15-37) 12/17/18 05:17 ALT 21 Units/L (12-78) 12/17/18 05:17 Alkaline Phosphatase 66 Units/L (46-116) 12/17/18 05:17 Creatine Kinase 182 Units/L (26-192) 12/16/18 01:43 CK-MB (CK-2) 1.7 ng/mL (0-4.0) 12/16/18 01:43 CK/CKMB % Calc 0.9 % (<4) 12/16/18 01:43 Troponin I < 0.02 ng/mL (0-1.5) 12/16/18 01:43 Total Protein 6.7 g/dL (6.4-8.2) 12/17/18 05:17 Albumin 3.4 g/dL (3.4-5.0) 12/17/18 05:17 Globulin 3.3 g/dL (2.5-4.5) 12/17/18 05:17 Albumin/Globulin Ratio 1.0 Ratio (1.1-2.1) L 12/17/18 05:17 Amylase 38 Units/L (25-115) 12/15/18 17:59 Lipase 40 Units/L (73-393) L 12/15/18 17:59 Specimen Type Clean catch urine 12/15/18 19:32 Urine Color Yellow (YELLOW) 12/15/18 19:32 Urine Appearance Slightly hazy (CLEAR) 12/15/18 19:32 Urine pH 6.0 (5.0 - 8.0) 12/15/18 19:32 Ur Specific [place] 1.010 (1.000-1.030) 12/15/18 19:32 Urine Protein 1+ (NEGATIVE) 12/15/18 19:32 Urine Glucose (UA) Negative (NEGATIVE) 12/15/18 19:32 Urine Ketones Negative (NEGATIVE) 12/15/18 19:32 Urine Occult Blood 1+ (NEGATIVE) 12/15/18 19:32 Urine Nitrite Negative (NEGATIVE) 12/15/18 19:32 Urine Bilirubin Negative (NEGATIVE) 12/15/18 19:32 Urine Urobilinogen Normal (NORMAL) 12/15/18 19:32 Ur Leukocyte Esterase 1+ (NEGATIVE) 12/15/18 19:32 Urine RBC 3-5 /HPF (0-3) A 12/15/18 19:32 Urine WBC 3-5 /HPF (0-5) 12/15/18 19:32 Ur Squamous Epith Cells Moderate /HPF (NEGATIVE) 12/15/18 19:32 Urine Bacteria 1+ /HPF (NEGATIVE) 12/15/18 19:32 Ur Culture Indicated? No/not indicated 12/15/18 19:32 Tissue Pathology To follow 12/17/18 11:40 - Plan (1) Abdominal pain Status: Acute Qualifiers: Abdominal location: generalized Plan: GI CONSULT, PROTONIX IV, CONTINUE TO MONITOR (2) Nausea and vomiting Status: Acute Qualifiers: Vomiting type: unspecified Vomiting Intractability: unspecified Qualified Code(s): R11.2 - Nausea with vomiting, unspecified (3) Dehydration, mild Status: Acute (4) HTN (hypertension) Status: Acute Qualifiers: Hypertension type: essential hypertension Qualified Code(s): I10 - Essential (primary) hypertension Plan: CONTINUE HOME MEDS (5) Chest pain, rule out acute myocardial infarction Status: Acute
[2018-12-18 05:20] LABS: BASOPHILS % (AUTO) 0.7 % (0.2-1.0); EOSINOPHILS # (AUTO) 0.1 x10^3/uL (0.0-0.2); EOSINOPHILS % (AUTO) 1.6 % (0.9-2.9); HEMATOCRIT 37.5 % (36.0-47.0); HEMOGLOBIN 12.6 g/dL (12.0-16.0); LYMPHOCYTES # (AUTO) 1.3 X10^3/uL (1.3-2.9); LYMPHOCYTES % (AUTO) 20.9 % (21.0-51.0); MEAN CORPUSCULAR HEMOGLOBIN 28.9 pg (27.0-34.0); MEAN CORPUSCULAR HGB CONC 33.5 g/dL (33.0-35.0); MEAN CORPUSCULAR VOLUME 86.5 fL (80.0-100.0); MEAN PLATELET VOLUME 9.5 fL (7.4-11.0); MONOCYTES # (AUTO) 0.5 x10^3/uL (0.3-0.8); MONOCYTES % (AUTO) 7.8 % (0.0-13.0); NEUTROPHILS # (AUTO) 4.2 x10^3/uL (2.2-4.8); PLATELET COUNT 147 X10^3/uL (150.0-450.0); RED BLOOD COUNT 4.34 X10^6/uL (3.5-5.4); RED CELL DISTRIBUTION WIDTH 14.7 % (11.6-16.5); WHITE BLOOD COUNT 6.1 X10^3/uL (3.6-10.0)
[2018-12-18 05:31] LABS: CALCIUM 8.2 mg/dL (8.5-10.1); CARBON DIOXIDE 27.7 mmol/L (21-32); CREATININE 1.4 mg/dL (0.55-1.02); TOTAL PROTEIN 5.9 g/dL (6.4-8.2)
[2018-12-18] MEDS: NS 1000 ML 1,000 ML IV SCH (06:00)
[2018-12-18] MEDS: HumuLIN R SUBCUT PRN ×2 (06:58→11:27)
[2018-12-18] MEDS ORDERED: ALLEGRA ONE (07:56)
[2018-12-18 08:06] VITALS: BP 133/63
[2018-12-18] MEDS ORDERED: PEPCID 20 MG IV PREMIX* 20 MG/50 ML BAG IV SCH (09:00)
[2018-12-18] MEDS: MICRO K EXTEN CAP 10 MEQ PO SCH (09:07)
[2018-12-18] MEDS: ALLEGRA PO SCH (09:08)
[2018-12-18] MEDS: COREG TAB 6.25 MG PO SCH (09:08)
[2018-12-18] MEDS: TAB-A-VITE PO SCH (09:10)
[2018-12-18] MEDS: COLACE CAP 100 MG PO SCH (09:10)
[2018-12-18] MEDS: SYNTHROID 88 mcg TAB PO SCH (09:12)
[2018-12-18] MEDS: PROTONIX INJ 40 MG VIAL IVP SCH (09:12)
[2018-12-18] MEDS: PROVENTIL NEB TX 0.083% 2.5MG/ 3ML NEB SCH (09:27)
[2018-12-18] MEDS: PULMICORT NEB TX 0.5 MG NEB SCH (09:27)
[2018-12-18] MEDS ORDERED: TORADOL 60 MG VIAL IM ONE (10:30)
[2018-12-18] MEDS ORDERED: TORADOL 60 MG VIAL ONE (10:32)
== END 2018-12-18 11:35 | disposition home or self-care (01) ==
LOC: MED/SURG
PROVIDERS: ADMIT Internal Medicine; ATTEND Internal Medicine
DX: R10.13 Epigastric pain; R11.2 Nausea with vomiting, unspecified; K44.9 Diaphragmatic hernia without obstruction or gangrene; R10.84 Generalized abdominal pain; K20.8 Other esophagitis; I10 Essential (primary) hypertension; K21.9 Gastro-esophageal reflux disease without esophagitis; J44.9 Chronic obstructive pulmonary disease, unspecified; E86.0 Dehydration; I25.10 Atherosclerotic heart disease of native coronary artery without angina pectoris; K29.60 Other gastritis without bleeding; R07.89 Other chest pain
CPT/HCPCS: 36415; 71010; 71045; 78264; 80053; 81001; 82150; 82550; 82553; 83690; 84484; 85025; 88305; 88342; 93005; 94640; 94760; 96367; 96372; 96374; 99100; A4216; A4222; C9113; S0028; G0378; J1815; J1885; J2270; J2405; J2704; J7030; J7613; J7626